=== PATIENT | female | born 1995 | race Two or more races ===

== ENCOUNTER 2018-08-13 22:33 | Emergency (ER) | payer OTHER ==
[2018-08-13 22:40] VITALS: BP 133/93
[2018-08-13] MEDS ORDERED: CEPHALEXIN 500MG PREPACK#4 BTL TAKEHOME ONE (22:48)
--- NOTE | 2018-08-13 22:51 | EDPHY ---
H & P Stated Complaint: R THIGH LAC 2 DAYS AGO/EXACTO KNIFE Time Seen by Provider: 08/13/18 22:54 HPI/ROS: HPI: This is A 23-year-old female who presents with Chief Complaint: R THIGH LAC 2 DAYS AGO/EXACTO KNIFE Location: Right inner thigh Quality: Laceration Duration: 2-4 days ago Signs and Symptoms: No bleeding, no radiation, no numbness, no weakness, no tingling, no incontinence, no decreased range of motion, no swelling, no pain, no fever, + bruising Timing: Acute Severity: Mild Context: Patient is a student at [employer] working [employer] when approximately 2-4 days ago she accidentally slipped and cut her right inner thigh within [employer] knife. She reports that she actually punctured the knife into her thigh approximately intermediate down. She reports that since that time there is bruising in the area. She immediately washed out with soap and water and then applied alcohol. She denies any radiation, weakness, warmth, tenderness, discharge. Modifying Factors: Local wound care Comment: ROS: A comprehensive 10 system review of systems is otherwise negative aside from elements mentioned in the history of present illness. MEDICAL/SURGICAL/SOCIAL HISTORY: Medical history: Generally healthy. Does not take any regular medications. Currently menstruating. Surgical history: Denies Social history: Student at [employer]. Never smoked. CONSTITUTIONAL: Extremely well-appearing young adult [place] female, awake and alert, no obvious distress HEENT: Atraumatic and normocephalic. NECK: supple EXTREMITIES: 2/2 pulses, strength 5/5, right inner thigh approximately 2 in from the superior portion of the knee shows small pinpoint puncture wound with surrounding ecchymosis; no fluctuance/erythema/discharge noted. good light touch sensation. no deformities, no clubbing, no cyanosis or edema. NEUROLOGICAL: no focal neuro deficits. GCS 15. Light touch sensation intact. SKIN: Warm and dry, no erythema. no rash. Good capillary refill. Source: Patient Exam Limitations: No limitations - Personal History LMP (Females 10-55): Now Current Tetanus Diphtheria and Acellular Pertussis (TDAP): Yes - Medical/Surgical History Hx Asthma: No Hx Chronic Respiratory Disease: No Hx Diabetes: No Hx Cardiac Disease: No Hx Renal Disease: No Hx Cirrhosis: No Hx Alcoholism: No Hx HIV/AIDS: No Hx Splenectomy or Spleen Trauma: No Other PMH: None - Social History Smoking Status: Never smoked Constitutional: Initial Vital Signs Temperature (C) 36.9 C 08/13/18 22:37 Heart Rate 77 08/13/18 22:37 Respiratory Rate 16 08/13/18 22:37 Blood Pressure 133/93 H 08/13/18 22:37 O2 Sat (%) 96 08/13/18 22:37 O2 Delivery Mode Room Air Allergies/Adverse Reactions: No Known Allergies Allergy (Verified 08/13/18 22:40) Home Medications: Medication Instructions Recorded Miscellaneous Medical Supply [NO 12/25/13 HOME MEDS] Cephalexin [Keflex (*)] 500 mg PO TID #15 cap 08/13/18 Medical Decision Making ED Course/Re-evaluation: Tetanus is current. No fluctuance to I and D or bonifacio signs of infection. Area copiously irrigated and Steri-Strips applied. Will start on Keflex for antibiotic prophylaxis. Prepack provided this evening and prescription for same. No signs of neurovascular compromise/tenting of skin/compartment syndrome/ extremities and joints examined above and below area of concern and are neurovascularly intact/septic arthritis. This patient was seen under the supervision of my secondary supervising physician. I evaluated care for this patient independently. Discussed this patient with Dr. Frazier. Differential Diagnosis: Differential diagnosis includes but is not limited to laceration, puncture wound , foreign body, cellulitis, abscess Departure - Departure Disposition: Home, Routine, Self-Care Clinical Impression: Puncture wound without foreign body, right thigh, initial encounter Condition: Good Instructions: Puncture Wound (ED) Additional Instructions: Keep the Steri-Strips dry and in place for 48 hours. After 48 hours, you may wash the site daily with mild soap and water; then pat dry. Allow the Steri-Strips to fall off on their own in 5-7 days. Take Tylenol 650 mg every 4 hours and/or Ibuprofen 600 mg every 8 hours with food as needed for pain. Take Keflex 3 times a day x5 days to prevent infection. Return to the ER immediately if you experience redness, red streaks, have fevers /chills, flu like symptoms, limited range of motion, or any other symptoms that concern you. Referrals: [facility] [Clinic] - Follow Up Only If Needed Prescriptions: Cephalexin [Keflex (*)] 500 mg PO TID #15 cap
== END 2018-08-13 23:05 | disposition home or self-care (01) ==
DX: S71.111A Laceration without foreign body, right thigh, initial encounter (principal); W26.0XXA Contact with knife, initial encounter; Y93.D9 Activity, other involving arts and handcrafts; Y92.218 Other school as the place of occurrence of the external cause